=== PATIENT | female | born 2005 | race Two or more races ===

== ENCOUNTER 2023-04-16 19:15 | Emergency (ER) | payer OTHER ==
[~2023-04-16] VITALS: Ht 165.1 cm; Wt 79.4 kg
[2023-04-16] MEDS ORDERED: WELLBUTRIN XL300 MG (19:33)
[2023-04-16] MEDS ORDERED: EFFEXOR XR75 MG (19:34)
== END 2023-04-16 21:00 | disposition home or self-care (01) ==
LOC: ER 19:15 → EMR PED 19:21
DX: N94.6 Dysmenorrhea, unspecified (principal)

== ENCOUNTER 2023-09-17 06:40 | Emergency (ER) | payer OTHER ==
[~2023-09-17] VITALS: Ht 165.1 cm; Wt 68.0 kg
[~2023-09-17 06:40] MED LIST: EFFEXOR XR75 MG; WELLBUTRIN XL300 MG
== END 2023-09-17 08:53 | disposition home or self-care (01) ==
LOC: ER 06:40 → EMR PED 06:40 → ER 06:42 → EMR PED 07:55
DX: H10.211 Acute toxic conjunctivitis, right eye (principal)

== ENCOUNTER 2024-09-24 15:24 | Outpatient (CLI) | payer OTHER ==
[~2024-09-24 15:24] MED LIST changes: +ABILIFY5 MG; +BUSPIRONE HCL5 MG; +RESTORIL30 M1; +STRATTERA18 MG; +ZOLOFT100 MG
== END 2024-09-24 15:28 | disposition home or self-care (01) ==
LOC: SONOGRAMA 15:24
DX: N94.9 Unspecified condition associated with female genital organs and menstrual cycle (principal)

== ENCOUNTER 2025-05-11 09:38 | Outpatient (CLI) | payer OTHER ==
[2025-05-11 10:18] LABS: BASO % 0.4 % (0.1-1.2); EOS # 0.10 (0.04-0.54); EOS % 1.8 % (0.7-7.0); LYMPH # 1.62 (1.18-3.74); LYMPH % 28.6 % (19.3-53.1); MEAN PLATELET VOLUME 8.90 fl (9.4-12.4); MONO # 0.42 (0.24-0.82); MONO % 7.4 % (4.7-12.5); NEUT # 3.48 (1.56-6.13); NEUT % 61.4 % (34.0-71.1); RED CELL DISTRIBUTION WIDTH 13.5 % (11.6-14.4)
[2025-05-11 10:21] LABS: URINE APPEARANCE Clear; URINE BILIRRUBIN Negative (NEGATIVE); URINE BLOOD Negative; URINE COLOR Yellow; URINE GLUCOSE Negative (NEGATIVE); URINE KETONE Negative (NEGATIVE); URINE LEUKOCYTE Moderate; URINE NITRATE Negative; URINE PROTEIN Negative (NEGATIVE); URINE UROBILINOGEN 0.2 E.U./dl
[2025-05-11 10:23] LABS: URINE BACTERIA 2214.7 uL (0.0-1933); URINE EPITHELIAL CELLS 44.4 uL (0.0-38.8); URINE RBC 4.9 uL (0.0-20.8); URINE WBC 61.3 uL (0.0-23.2)
[2025-05-11 10:26] LABS: URINE CAST 0.14 uL (0.0-1.40)
[2025-05-11 11:21] LABS: ALT/SGPT 18.0 U/L (12-78); AST/SGOT 15.0 U/L (15-37); BILIRUBIN TOTAL 0.44 mg/dL (0.3-1.2); BUN CREA RATIO 10.0 (7.0-25.0); CHOL HDL RATIO 2.3 (0-5.0); CREATININE SERUM 0.7 mg/dL (0.55-1.02); GFR 104.64; GLOBULINA 3.0 G/DL (2.4-3.5); GLUCOSE FASTING 83.0 mg/dL (65-100); HDL 75.0 mg/dl (40-60); LDL 86.0 mg/dl (0-130); OSMOLALITY SERUM 278.0 MOSM/KG (275-295); T4 FREE 0.48 NG/ML (0.76-1.46); TSH 1.55 uIU/mL (0.358-3.74); VLDL 13.0 (0-39)
== END 2025-05-11 09:41 | disposition home or self-care (01) ==
LOC: LAB 09:38
DX: Z00.00 Encounter for general adult medical examination without abnormal findings (principal); E03.9 Hypothyroidism, unspecified; R73.09 Other abnormal glucose; D64.9 Anemia, unspecified